=== PATIENT | male | born 1975 | race Caucasian/White ===

== ENCOUNTER 2017-05-10 20:23 | Inpatient (IN) | payer MEDICAID ==
[2017-05-11] MEDS: ASPIRIN 81 MG TAB PO ×2 (03:25→09:15)
[2017-05-11] MEDS: NITROGLYCERIN (SL) 0.4 MG TAB SL (03:25)
[2017-05-11 03:46] LABS: ADD MAN DIFF? NO
[2017-05-11 04:03] LABS: WHITE BLOOD COUNT 10.6 10^3/ul (4.8-10.8)
[2017-05-11 04:03] LABS: BASOPHIL # 0.1 10^3/ul (0.0-0.1); BASOPHILS % 0.7 % (0.0-2.0); EOSINOPHILS # 0.1 10^3/ul (0.0-0.5); EOSINOPHILS % 1.1 % (0.0-7.0); HEMATOCRIT 43.8 % (42.0-52.0); HEMOGLOBIN 14.9 g/dl (14.0-18.0); LYMPHOCYTES # 3.8 10^3/ul (0.8-2.9); LYMPHOCYTES % 35.4 % (15.0-51.0); MEAN CORPUSCULAR HEMOGLOBIN 29.7 pg (29.0-33.0); MEAN CORPUSCULAR VOLUME 87.3 fl (82.0-101.0); MEAN PLATELET VOLUME 9.3 fl (7.4-10.4); MONOCYTE # 0.7 10^3/ul (0.3-0.9); MONOCYTES % 6.8 % (0.0-11.0); NEUTROPHIL # 5.8 10^3/ul (1.6-7.5); NEUTROPHILS % 54.2 % (39.0-77.0); PLATELET COUNT 328 10^3/UL (140-415); RED BLOOD COUNT 5.02 10^6/ul (4.70-6.10); RED CELL DISTRIBUTION WIDTH 12.3 % (11.5-14.5)
[2017-05-11 04:05] LABS: ALANINE AMINOTRANSFERASE 24 IU/L (13-69); ALBUMIN 4.7 g/dl (3.3-4.9); ALKALINE PHOSPHATASE 81 IU/L (42-121); ANION GAP 17 (8-16); ASPARTATE AMINO TRANSFERASE 21 IU/L (15-46); BILIRUBIN,INDIRECT 0.9 mg/dl (0-1.1); BILIRUBIN,TOTAL 0.9 mg/dl (0.2-1.3); BLOOD UREA NITROGEN 14 mg/dl (7-20); CALCIUM 9.8 mg/dl (8.4-10.2); CARBON DIOXIDE 30 mmol/L (21-31); CHLORIDE 98 mmol/L (97-110); CREATININE 0.65 mg/dl (0.61-1.24); GLUCOSE 209 mg/dl (70-220); LIPASE 72 U/L (23-300); POTASSIUM 3.7 mmol/L (3.5-5.1); SODIUM 141 mmol/L (135-144); TOTAL PROTEIN 8.3 g/dl (6.1-8.1)
[2017-05-11 04:32] LABS: B-TYPE NATRIURETIC PEPTIDE < 11 PG/ML (0-125); TROPONIN-I < 0.012 ng/ml (0.00-0.12)
[2017-05-11] MEDS ORDERED: GLUCOSE GEL 15 GRAM TUBE PO ×2 (07:30)
[2017-05-11] MEDS ORDERED: ACETAMINOPHEN 325 MG TAB PO (07:30)
[2017-05-11] MEDS ORDERED: DEXTROSE 50% 50 ML SYRINGE IV ×2 (07:30)
[2017-05-11] MEDS ORDERED: NACL 0.9% 3 ML SYG IV (07:30)
[2017-05-11] MEDS ORDERED: GLUCAGON 1 MG INJ IM (07:30)
[2017-05-11] MEDS ORDERED: morphine 2 MG INJ IV (07:30)
[2017-05-11] MEDS ORDERED: NITROGLYCERIN (SL) 0.4 MG TAB SL (07:30)
[2017-05-11] MEDS ORDERED: GLUCOSE GEL 15 GRAM TUBE BUCCAL (07:30)
[2017-05-11] MEDS ORDERED: ALBUTEROL/IPRATROPIUM (NEB) 3 ML AMP HHN (07:30)
[2017-05-11] MEDS ORDERED: morphine LIQ (10 MG/5 ML) CUP PO (07:30)
[2017-05-11] MEDS ORDERED: ONDANSETRON 4 MG INJ IV (07:30)
[2017-05-11] MEDS: metFORMIN 850 MG TAB PO ×2 (09:00→16:57)
[2017-05-11] MEDS: LOSARTAN 50 MG TAB PO (09:15)
[2017-05-11] MEDS: GEMFIBROZIL 600 MG TAB PO (09:20)
[2017-05-11] MEDS: ENOXAPARIN 40 MG/0.4 ML SYG SC (09:45)
[2017-05-11 14:28] LABS: TROPONIN-I < 0.012 ng/ml (0.00-0.12)
[2017-05-11 18:40] LABS: TROPONIN-I < 0.012 ng/ml (0.00-0.12)
[2017-05-12] MEDS ORDERED: INFLUENZA VIRUS VACCINE 0.5 ML SYG IM* (14:00)
== END 2017-05-11 18:15 | disposition home or self-care (01) | DRG 313 ==
LOC: E/R 20:23 → TEL 05-11 05:01
DX: R07.9 Chest pain, unspecified (principal); I10 Essential (primary) hypertension; E11.9 Type 2 diabetes mellitus without complications; E78.5 Hyperlipidemia, unspecified; E66.9 Obesity, unspecified; Z68.36 Body mass index [BMI] 36.0-36.9, adult
CPT/HCPCS: 36415; 71045; 80053; 83690; 83880; 84484; 85025; 93005; 93306; 96372; 99285-25